=== PATIENT | female | born 1995 | race Caucasian/White ===

== ENCOUNTER 2018-11-29 10:02 | Day surgery (SDC) | payer BC ==
--- NOTE | 2018-11-25 09:37 | HP ---
DATE OF SURGERY: 11/29/2018 HISTORY OF PRESENT ILLNESS: The patient is a 23 year-old since for a few years had a nodule or cyst on right flank/chest area. No drainage. It has increased in size. She desires definitive excision. PAST MEDICAL HISTORY: She denies any chronic illnesses. MEDICATIONS: None. ALLERGIES: NKDA. ADHESIVE TAPE. FAMILY HISTORY: Negative. SOCIAL HISTORY: No smoking or alcohol abuse. REVIEW OF SYSTEMS: Fourteen systems reviewed per admission assessment. No chest pain or palpitations other systems negative or noncontributory as above and per preadmission questionnaire. PHYSICAL EXAMINATION: GENERAL: No acute distress. HEENT: Sclerae nonicteric. NECK: No JVD. CHEST: Equal excursion, nonlabored breathing. CVS: Regular rate and rhythm. ABDOMEN: Soft. On the right flank/chest area there is question of cyst or nodule. No drainage currently. No redness. No peritoneal signs. EXTREMITIES: No significant edema. NEURO: Alert, moving extremities grossly symmetrically. IMPRESSION: I recommend excision and biopsy of right flank/chest area cyst or nodule as an outpatient. Risks and benefits explained in detail including but not limited to bleeding or infection, risk of wound infection or dehiscence possibly requiring packing, general risk of aches, pains, burning or numbness, the fact that she would have scar in the area however wide we need to go. We may need to go possibly three times as long for even closure of the skin. General risk of aches, pains, burning or numbness possibly termite renewal inspector or chronic in nature, general risk of anesthesia, deep venous thrombosis pulmonary embolism or pneumonia but not limited to. She understands and agrees to the planned procedure, will proceed with excisional biopsy of right flank/chest cyst or nodule as an outpatient.
[~2018-11-29 10:02] MED LIST: Lactated Ringers 1,000 ML IV ONE; Lactated Ringers 1,000 ML IV SCH; Sensorcaine 0.25% 10 ML ONE
[2018-11-29] MEDS ORDERED: XYLOCAINE 1% HCL 20 ML MDV ONE (11:04)
[2018-11-29] MEDS ORDERED: DIPRIVAN 200 MG/20 ML IV ONE ×2 (11:12→11:47)
[2018-11-29] MEDS ORDERED: Versed 2 MG/2 ML Injection ONE (11:13)
[2018-11-29] MEDS ORDERED: Ketamine HCl 50 MG/ML ONE (11:13)
[2018-11-29] MEDS ORDERED: SUBLIMAZE 100 MCG/2 ML ONE (11:13)
[2018-11-29 12:35] VITALS: O2SAT 99
[2018-11-29 13:00] VITALS: BP 117/72; PULSE 74
--- NOTE | 2018-11-29 15:22 | OP ---
SURGERY DATE/TIME: 11/29/2018 1132 PREOPERATIVE DIAGNOSIS: Enlarging right flank/chest nodule or cyst. POSTOPERATIVE DIAGNOSIS: Enlarging right flank/chest nodule or cyst (cyst). PROCEDURE: Excisional biopsy of right flank/chest cyst (approximately 1.9 to 2 cm in size). SURGEON: Dr. Enzo Hernandez. ANESTHESIA: MAC. ESTIMATED BLOOD LOSS: Minimal. INDICATIONS: As noted above. Risks and benefits explained in detail and not limited to and consent obtained. DESCRIPTION OF PROCEDURE AND FINDINGS: The patient is taken to the operating room. MAC anesthesia induced. Site confirmed in the preop holding area. After official time out and no disagreement with planned procedure and after prepping and draping in usual sterile fashion, a little small spindle-shaped skin overlying the area transverse incision made. Dissection carried down circumferentially around what appeared to be an occlusion cyst. Dissected off the deeper tissue and passed off. It had a small rupture. There was no evidence of any cyst material or cyst wall remaining in the wound. It measured about 1.9 to 2 cm in size. Hemostasis controlled with some pinpoint cautery. Good hemostasis noted. 1% lidocaine local had been infiltrated in field pattern around the area prior to the excision. Good hemostasis noted. It was then closed in intermediate fashion. The superficial subcu closed with 3-0 Vicryl. Skin closed with 4-0 Vicryl. Steri-Strips and sterile dressing applied. The patient tolerated the procedure well. There were no immediate complications.
== END 2018-11-29 13:00 | disposition home or self-care (01) ==
LOC: SDC 10:02
PROVIDERS: ATTEND Surgery
DX: L72.0 Epidermal cyst (principal); L72.9 Follicular cyst of the skin and subcutaneous tissue, unspecified
CPT/HCPCS: 84703; 88304; J2250; J2704; J3010